=== PATIENT | female | born 1995 | race Caucasian/White ===

== ENCOUNTER 2023-01-21 12:08 | Outpatient (CLI) | payer BC, SELFPAY ==
--- NOTE | 2023-01-21 12:15 | CRLHL7_ITS ---
For Patients: As a result of the Cures Act, medical imaging exams and procedure reports are released immediately into your electronic medical record. You may view this report before your referring provider. If you have questions, please contact your health care provider. INDICATION: First trimester scan, establish dates. COMPARISON: None. TECHNIQUE: Real-time adams-scale imaging of the pelvis was performed. FINDINGS: Sonographic imaging demonstrates a single living intrauterine gestation. The embryo demonstrates a regular cardiac rate measuring 183 beats per minute. The embryo`s crown-rump length measurement of 2.3 cm corresponds to a gestational age of 9 weeks 0 days with a sonographic due date of 08/26/2023. There is a normal-appearing yolk sac. There are no gross abnormalities noted within the embryo at this early state of development. The gestational sac has a normal appearance. There is no evidence of a perigestational hemorrhage. The amount of fluid within the sac appears appropriate for gestational age. The cervix is closed. The myometrium appears normal. The ovaries are of normal size. Corpus luteal cyst right ovary measuring 2.1 cm. There are no suspicious fluid collections noted in the cul-de-sac. IMPRESSION: Normal first trimester OB ultrasound exam. Gestational age calculated at 9 weeks 0 days with a sonographic due date of 08/26/2023. Dictated by Ayush Edwards MD @ 01/21/2023 12:56:10 PM (Electronically Signed)
== END 2023-01-21 12:09 | disposition home or self-care (01) ==
LOC: US 12:08
PROVIDERS: Visit Provider Advanced Practice Midwife
DX: Z34.91 Encounter for supervision of normal pregnancy, unspecified, first trimester (principal); Z3A.09 9 weeks gestation of pregnancy
CPT/HCPCS: 76817; 86703; 86803; 86850; 86900; 86901; 87340

== ENCOUNTER 2023-01-21 13:07 | Outpatient (CLI) | payer BC, SELFPAY | END 2023-01-21 13:08 | disposition home or self-care (01) | PROVIDERS: Visit Provider Advanced Practice Midwife | DX: Z34.91 Encounter for supervision of normal pregnancy, unspecified, first trimester (principal); Z3A.09 9 weeks gestation of pregnancy | CPT/HCPCS: 86592; 86703; 86762; 86787; 86803; 86850; 86900; 86901; 87086; 87340; 87491; 87591 ==

== ENCOUNTER 2023-02-10 10:14 | Outpatient (CLI) | payer BC, SELFPAY | END 2023-02-10 10:15 | disposition home or self-care (01) | LOC: NFLDREF 02-11 02:54 | PROVIDERS: Visit Provider Advanced Practice Midwife | DX: Z34.91 Encounter for supervision of normal pregnancy, unspecified, first trimester (principal); Z13.79 Encounter for other screening for genetic and chromosomal anomalies | CPT/HCPCS: 0353U ==

== ENCOUNTER 2023-06-03 09:26 | Outpatient (CLI) | payer BC, SELFPAY | END 2023-06-03 09:27 | disposition home or self-care (01) | LOC: NFLDREF 06-05 05:46 | PROVIDERS: Visit Provider Advanced Practice Midwife | DX: Z34.93 Encounter for supervision of normal pregnancy, unspecified, third trimester (principal); Z3A.30 30 weeks gestation of pregnancy | CPT/HCPCS: 86592 ==

== ENCOUNTER 2023-07-29 09:30 | Outpatient (CLI) | payer BC, SELFPAY ==
[2023-07-30 13:26] LABS: Strep B DNA Probe POSITIVE (Negative)
[2023-07-30 13:27] LABS: Strep B Pen/Amox Allergy No
== END 2023-07-29 09:31 | disposition home or self-care (01) ==
PROVIDERS: Visit Provider Advanced Practice Midwife
DX: Z34.93 Encounter for supervision of normal pregnancy, unspecified, third trimester (principal); Z3A.36 36 weeks gestation of pregnancy
CPT/HCPCS: 82565; 82570; 84156; 84450; 84460; 84520; 84550; 87081; 87653

== ENCOUNTER 2023-08-27 06:56 | Inpatient (IN) | payer BC, SELFPAY ==
[2023-08-27 07:24] VITALS: BMI 31.3
[2023-08-27 07:28] VITALS: BP 124/72; PULSE 77; PULSE 78; O2SAT 98
[2023-08-27] MEDS: miSOPROStoL 25 MCG/0.25 TABLET VAGINAL (08:10)
--- NOTE | 2023-08-27 08:35 | P.LDBA_ITS ---
Subjective History of Present Illness Date Seen: 08/27/23 Narrative: Patient is being admitted to Labor and Delivery for induction of labor for EFW on 10% and measuring small for dates at term. She is a 27 year old at 40.4 weeks gestation. Her full history and physical was done by MYA Roque on 08/06/2023. Please see this for details. Specific Issues/Plans Partner: Mehul Patient is a twin. Former L & D RN. H&P done by MYA Roque on 08/06/2023 1. Small for dates at term Growth and fluid check ordered 08/26 COVID: vaccinated and boosted x1 Flu: declines Tdap: 06/17/2023 Needs pap OB - Problem Based A/P Additional Plan (1) growth restriction: Status: Acute (2) Fwvwv-olg-xbuob fetus, third trimester: Status: Acute Plan Assessment:??G 1 P0 at 40.4 weeks gestation?? GBS positive?? Labor type: Induced, Early labor? Category 1 FHR pattern.? complicated by: Small for dates at term Growth US 08/26 EFW 10% Plan:?? * ?Admit to L & D? * IV access: SL per policy * Monitoring per policy: continuous ? * Candidate for analgesia of choice.? Planning to see how labor goes before deciding on pain management * Vaginal Cytotec every 4 hours for cervical ripening. * GBS prophylaxis will be initiated for GBS positive status when more active labor begins. Will treat with antibiotics per protocol. * Patient encouraged to reposition and ambulate to promote physiologic labor and . * Anticipate ? Delivery/Labor/Induction Plan Plan: induction Induction method: per misoprostol protocol OB Exam Physical Exam Vital signs: Pulse BP Pulse Ox 77 124/72 98 08/27/23 07:28 08/27/23 07:28 08/27/23 07:28 Narrative: Vitals Reviewed Constitutional:? Alert and oriented x3 HEENT:? Normocephalic, atraumatic Neck:? Supple Lungs:? Clear to auscultation bilaterally Heart:? Regular rate and rhythm, no murmur, rub or gallop Abdomen:? Soft, nontender, and gravid. Vertex by Gregg's, confirmed with cervical exam. Extremities:? No edema or erythema Cervix: 1 cm/30%/-2 station/vertex NST: 150 bpm/moderate variability/+ accelerations/- decelerations/4-5 mins contractions Detailed Labor and Delivery Exam Patient Gravid: Yes
[2023-08-27 12:14] VITALS: BP 132/68; PULSE 77; RESP 16; TEMP 36.8
[2023-08-27 12:20] LABS: Basophils Absolute Auto 0.02 K/uL (0.00-0.30); Basophils Percent Auto 0.2 % (0.0-3.0); Eosinophils Absolute Auto 0.06 K/uL (0.00-0.50); Eosinophils Percent Auto 0.6 % (0.0-7.0); Hemoglobin* 11.7 gm/dL (12.0-16.0); Immature Granulocytes Abs Auto 0.03 K/uL (0.00-0.30); Immature Granulocytes Pct Auto 0.3 %; Lymphocytes Absolute Auto 2.12 K/uL (0.90-2.90); Mean Corpuscular HGB Conc 33 gm/dL (32-36); Mean Corpuscular Hemoglobin 27 pg (26-34); Mean Corpuscular Volume 82 fL (80-100); Monocytes Percent Auto 6.6 % (0.0-11.0); Neutrophils Percent Auto 72.3 % (42.0-72.0); Platelet Count* 201 K/uL (140-440); RDW Coefficient of Variation % 13.3 % (11.5-15.5); Red Blood Count 4.38 m/uL (4.00-5.20); White Blood Count* 10.61 K/uL (4.50-11.00)
[2023-08-27 12:22] LABS: Slide Review Reflex No
--- NOTE | 2023-08-27 13:38 | PM.OBPNL ---
Subjective Date Seen: 08/27/23 Narrative: Hermelinda is coping well with labor pain/contractions. ?Her is with her for support. ?She is lara often but not feeling much more than tightening. We discussed options moving forward for induction. Given her frequent contractions we discussed an IV fluid bolus, Cervidil instead of Cytotec, or a Cook balloon. The patient would prefer to not have a Cook. She is talking over her options with her and will let us know what she decides. Objective Exam: VSS, afebrile General Appearance:? Calm, cooperative. ?No acute distress. ? Psychiatric Exam: Alert and oriented, appropriate affect Abdomen: Gravid Ctx: ?Q 1-3 min apart. ?Mild to?Moderate ? FHTs: ?Baseline: 145. ? ? Variability: moderate. ?Accels: +. ? ?Decels: ?absent. SVE: deferred Membranes: Intact ? Vital Signs: Last Vital Signs Pulse 77 08/27/23 12:14 BP 132/68 08/27/23 12:14 Pulse Ox 98 08/27/23 07:28 Plan Plan: Assessment:?? at 40.4 gestation?? GBS positive Patient is coping well with challenges of labor.?? Labor type: Induced, Early labor? complicated by: Small for dates at term Growth US 08/26 EFW 10% Labor complicated by: frequent contractions without progression to labor? Plan:?? Per pt preference Cervidil vs Cook placement. IV fluid bolus Continue with routine intrapartum cares as ordered.?? Patient encouraged to move and change positions to promote physiologic labor and .?? Nonpharmacologic comfort measures per patient preference. Candidate for analgesia of choice if desired. Anticipate progress to NVD. ?
[2023-08-27] MEDS: LACTATED RINGERS 1000 ML 1,000 ML IV (13:43)
[2023-08-27] MEDS: DINOPROSTONE 10 MG VAGINAL INSERT VAGINAL (14:51)
[2023-08-27 16:12] VITALS: BP 133/73; PULSE 72; RESP 16; TEMP 36.6
[2023-08-27 20:03] VITALS: BP 114/58; PULSE 61; TEMP 36.8
[2023-08-28] VITALS (12 sets, daily range): BP systolic 107–132; BP diastolic 52–78; PULSE 60–93; TEMP 36.4–37.2
--- NOTE | 2023-08-28 03:13 | PM.OBPNL ---
Subjective Date Seen: 08/28/23 Narrative: ?Hermelinda is coping well with labor pain/contractions. ?Mehul is with her for support. She has been able to sleep, she said she was woken by an occasional contraction. ?Cervidil was removed after 12 hours since placement. Cervix is now 1cm, soft, midposition, -2 not ballotable. Discussed plan of care moving forward with Hermelinda. Reviewed options of Cook, additional Cytotec or starting Pitocin. Risks and benefits were reviewed. Hermelinda would like to move forward with IV Pitocin at this time. Objective Exam: VSS, afebrile General Appearance:? Calm, cooperative. ?No acute distress. ? Psychiatric Exam: Alert and oriented, appropriate affect Abdomen: Gravid Ctx: ?Q 1-4 min apart. ?Mild ? ?she does not feel all that are tracing with Kitty in use FHTs: ?Baseline: 140. ? ? Variability: moderate. ?Accels: +. ? ?Decels: ?-. SVE: 1/50%/-2 Membranes: Intact ? Vital Signs: Last Vital Signs Temp 98.3 F 08/28/23 00:01 Pulse 67 08/28/23 00:01 Resp 16 08/27/23 16:12 BP 110/59 L 08/28/23 00:01 Pulse Ox 98 08/27/23 07:28 Assessment Assessment: induction ongoing Status: Category l Plan Plan: Assessment:?? at 40.5 gestation?? GBS positive Labor type: Induced, Early labor? complicated by: Small for dates at term Growth US 08/26 EFW 10% Plan:?? Start IV Pitocin per protocol GBS positive, start antibiotics when regular painful contractions begin or progression in dilation. Continue with routine intrapartum cares as ordered.?? Patient encouraged to move and change positions to promote physiologic labor and .?? Nonpharmacologic comfort measures per patient preference. Candidate for analgesia of choice if desired. Anticipate progress to NVD. ? ?
[2023-08-28] MEDS: OXYTOCIN 30 unit/500 ML in NS 30 UNIT/500 ML BAG IVPB (03:29)
--- NOTE | 2023-08-28 09:26 | PM.OBPNL ---
Subjective Date Seen: 08/28/23 Narrative: Hermelinda was on pitocin for a few hours and got up to 6ml/hr. Around 0800 baby dd have a couple of variables to the 70's followed by some late decelerations. Position changes and fluid bolus was given to try to resolve this. The pitocin was turned of around 0830 and the lates resolved shortly after. She was feeling some of the contractions when the pitocin was on but mildly but they have decreased in intensity since it was turned off. Variability has continued to be moderate throughout. After of a discussion of options going forward including restarting pitocin and cook placement with and without pitocin reviewing advantages and disadvantages of both. She would like to try the pitocin again. It was decided to give her a 2 hour break before restarting the pitocin. She will also try position changes and circuit. She might consider the cook if baby is still not tolerating pitocin. Offered a SVE but she declines at this time. Objective Vital Signs: Last Vital Signs Temp 98 F 08/28/23 07:20 Pulse 93 08/28/23 07:21 Resp 16 08/27/23 16:12 BP 107/55 L 08/28/23 07:21 Pulse Ox 98 08/27/23 07:28 Contractions Monitor mode: External Contraction Frequency: 1.5-4 with irritability inbetween Contraction pattern: Irregular Contraction intensity: Mild Pitocin Rate (mU/min): 0 Assessment Assessment: induction ongoing Status: Category l Heart Rate Baseline: 140 [employer] Deposit Clerk Variability: Moderate (6-25) Monitor Accelerations: Present Monitor Decelerations: Variable (followed by lates. no resolved. ) Plan Plan: Restart Pitocin around 1030. Induction ongoing. Continuous monitoring.
[2023-08-28] MEDS: LACTATED RINGERS 1000 ML 1,000 ML 125 ML IV ×2 (10:42→13:18)
[2023-08-28] MEDS: LACTATED RINGERS 1000 ML 1,000 ML IV (19:12)
--- NOTE | 2023-08-28 19:19 | PM.OBPNL ---
Subjective Date Seen: 08/28/23 Narrative: Janine Gabriel is a 27 yo at 40 5/7 weeks gestation here for IOL for IUGR at 10%ile. She was admitted yesterday morning and has received 1 dose of cytotec, cervidil, and pitocin. Plan to assess for further labor management. She reports mild cramping and discomfort but overall coping well with labor. She is supported by her . Objective Exam: Objective: Constitutional: Alert and oriented x3, mild distress, coping well Vital signs stable, see nurse documentation Abdomen: gravid, contractions palpate mild with contractions and soft between Cervix: 1-2 cm/60%/-1 station/vertex NST: 150 bpm/moderate variability/15x51 accelerations/occasional decelerations/irregular contractions Vital Signs: Last Vital Signs Temp 98.3 F 08/28/23 16:14 Pulse 70 08/28/23 16:14 Resp 16 08/27/23 16:12 BP 107/59 L 08/28/23 16:14 Pulse Ox 98 08/27/23 07:28 Contractions Monitor mode: External Contraction pattern: Irregular Contraction intensity: Mild Pitocin Rate (mU/min): 0 Assessment Assessment: early labor Station: -1 Status: Category l Heart Rate Baseline: 140 Monitor Accelerations: Present Monitor Decelerations: Variable (followed by lates. no resolved. ) Labor Progress: Attempted cook catheter but unable to get uterine balloon to stay in cervix. Attempted AROM, unsuccessfully. Plan Plan: Assessment:?? at 40.5 gestation?? GBS positive Labor type: Induced, Early labor? complicated by: Small for dates at term Growth US 08/26 EFW 10% Plan:?? Slow labor progression after multiple agents. Attempted cook x 2 and AROM, unsuccessful. Plan to start pitocin and restart cytotec. GBS positive, start antibiotics when regular painful contractions begin or progression in dilation or with AROM. Continue with routine intrapartum cares as ordered.?? Patient encouraged to move and change positions to promote physiologic labor and .?? Nonpharmacologic comfort measures per patient preference. Candidate for analgesia of choice if desired. Anticipate progress to NVD. ?
[2023-08-28] MEDS: OXYTOCIN 30 unit/500 ML in NS 30 UNIT/500 ML BAG 8 UNIT IVPB (21:33)
--- NOTE | 2023-08-28 23:07 | P.OBPN_ITS ---
Subjective Date Seen: 08/28/23 Narrative: Janine is a G1 at 40 5/7 weeks gestation that has made minimal cervical change after >36 hours of IOL. Patient is on 8 of pitocin. Tolerating labor well but not really feeling contractions. AROM and Cook catheter were previously attempted without success. It has been 4+ hours since previous exam. She had declined exam in the last few hours but is open to one now due to recent variable decelerations. Objective Exam: Objective: Constitutional: Alert and oriented x3, mild distress, coping well Vital signs stable, see nurse documentation Abdomen: gravid, contractions palpate mild with contractions and soft between Cervix: 1-2 cm/60%/-1 station/vertex, difficult exam with head easily palpated with anterior swipe but difficult to follow cervix to back, very tilted forward. AROM attempted, scant amount of clear fluid noted with exam. NST: 140 bpm/moderate with episodes of minimal variability/15x15 accelerations/variable and indeterminate decelerations/contractions regular every 1-3 minutes Vital Signs: Last Vital Signs Temp 99.0 F 08/28/23 20:00 Pulse 75 08/28/23 22:16 Resp 16 08/27/23 16:12 BP 115/74 08/28/23 22:16 Pulse Ox 98 08/27/23 07:28 Contractions Monitor mode: External Contraction pattern: Irregular Contraction intensity: Mild Pitocin Rate (mU/min): 8 Assessment Assessment: induction ongoing and early labor Station: -1 Status: Category ll Heart Rate Baseline: 140 Plan Plan: at 40.5 gestation?? GBS positive Labor type: Induced, Early labor? Category II tracing complicated by: IUGR. Growth US 08/26 EFW 10% Plan:?? Reviewed unchanged cervical exam after 5 hours with restarted pitocin, on 8mu and status with decelerations intermittently, overall reassuring. Discussed probability of labor progression. Discussed the remote status of her labor from delivery. With exam, cervix is midline but tilts very anterior and is very difficult examine and keep it in a position to do AROM. I presented options of continuing labor with pitocin, shutting it off and retrying Cervidil or cook catheter, or proceeding with section. She was given time to discuss further with her . After some time, she has elected to proceed with section. Dr. Moser consulted and notified; agrees to proceed. Care transferred to OB for delivery, CNM will assume care. See her note for consent and proc edure documentation.
[2023-08-29] VITALS (32 sets, daily range): BP systolic 101–127; BP diastolic 55–81; PULSE 54–104; RESP 14–16; TEMP 36.3–37; O2SAT 97–99
--- NOTE | 2023-08-29 00:16 | P.OBCN_ITS ---
OB - CN: HPI Date of Consult Time Seen by Provider: 00:16 Date Seen: 08/29/23 Patient: [facility] Patient Consult date: 08/29/23 Requesting Physician: Kacie Hubbard CNM Primary Care Provider: Not a Local Provider Consult Narrative Reason for consult: nonreassuring FHTs and other (Failed IOL) Narrative: The patient is a 27 year old G 1 P 0 at 40 6/7 weeks gestation that was admitted to the Center on 08/27/23 for failed induction of labor, intolerance of labor. History History 1 Elective abortions Para 0 Spontaneous abortions Hx # Term Pregnancies Ectopic pregnancies Hx # Pregnancies Multiple births Number of Living Children 0 Labs GBS status: positive OB Labs: Lab Assessment Start: 08/27/23 07:16 Freq: ONCE Status: Complete Protocol: PC.OBGBS Activity Type Activity Date Activity User E-sign Co-sign Detail Recorded Client Recorded Date Recorded By Document 08/27/23 07:21 ABP [id number] 08/27/23 07:22 ABP 08/27/23 07:21 Lab Assessment GBS Status positive Is Patient Allergic to Penicillin? No Treatment Required OK Are Labs Available Yes Maternal Blood Type A Maternal RH Factor Positive Evaluate Maternal Rubella Immune Status Immune Hepatitis B Surface Antigen Negative Maternal HIV Status Negative Maternal Syphillis (RPR) Status Negative [facility] Medical History No significant past medical history Surgical History [place] teeth extracted ?K08.409 - Partial loss of teeth, unspecified cause, unspecified class (ICD- 10) History of placement of ear tubes ?Z96.22 - Myringotomy tube(s) status (ICD-10) Family History Father High cholesterol Mother No significant past medical history Grandfather Stroke Pancreatic cancer Grandfather Cardiac arrhythmia Social History What is your current living situation?: I presently have a place to live Problems where you live: no known problems In the past 12 months, utilities in danger of being shut off: no In past 12 months, lack of transportation kept you from medical appts, meetings, work, or getting things needed for daily living: no In the past 12 mos, have been you worried that your food would run out before you had money to buy more?: never true In the past 12 mos, the food you bought just didn't last and you didn't have money to buy more?: never true Smoking Status: Never smoker How often does anyone, including family, friends and others, physically hurt you : never How often does anyone, including family, friends and others, insult or talk down to you: never How often does anyone, including family, friends and others, threaten you with harm: never How often does anyone, including family, friends and others, scream or curse at you: never Little interest or pleasure in doing things: not at all Feeling down, depressed, or hopeless: not at all Meds Home Medications and Allergies Home Medications Medication Instructions Recorded Confirmed Type prenat.vits,bharathi,ajd-dbva-zvdkb 1 tab PO QDAY 01/21/23 08/27/23 History Allergies Allergy/AdvReac Type Severity Reaction Status Date / Time No Known Drug Allergies Allergy Verified 08/26/23 09:19 OB - H&P: Exam Physical Exam: Vital signs: Temp Pulse Resp BP Pulse Ox 99.0 F 75 16 115/74 98 08/28/23 20:00 08/28/23 22:16 08/27/23 16:12 08/28/23 22:16 08/27/23 07:28 Narrative: Cervix: 2cm/anterior/50% NST: 130bpm/moderate variability/positive accelerations/negative decelerations after d/c of oxytocin OB - CN: A/P Assessment and Plan (1) growth restriction: Status: Acute (2) Cseak-xwu-yzrap fetus, third trimester: Status: Acute (3) Failed induction of labor: Status: Acute Plan 27 y/o G1 at 40 6/7 weeks admitted for IOL due to post term dates. Patient has been admitted now for 2 days, she has received Cytotec, Cervidil and Oxytocin. CNM attempted placement of cook catheter but cervix is really anterior and very difficult to grasp. Cervix has changed from 1-2cm. Cervix very hard to reach and AROM was just attempted. Oxytocin has had to be turned off on multiple occasions throughout the day due to repetitive late decelerations. CNM discussed further options with patient including proceeding with delivery at this time and patient has agreed. I explained to Ally how procedure is performed, risks of surgery such as bleeding and needing an emergency blood transfusion, risks associated with blood transfusions to such as infection or allergic reaction. Risk of infection associated to surgery, damage to nearby structures, blood clots. Discussed interventions to decrease these risks, such as prophylactic ant ibiotics, compression stockings etc... Reviewed family centered section as well as post op care. Will proceed with delivery.
--- NOTE | 2023-08-29 01:23 | PM.OBPRCCS ---
Procedure Time Seen by Provider: Date of procedure: 08/29/23 Pre-op diagnosis: Failed induction of labor, intolerane of labor Post-op diagnosis: same Procedure Done: Global [facility] bill your pro fee for this procedure?: Yes Blood Loss Measurement Type: QBL (279) Bakri Used: No IV fluids (mL): 1,200 Urine Output (mL): 100 Surgeon: Rosanne Hauser MD Customer Support Agent: None Anesthesia type: Spinal Findings: FINDINGS: Live-born male , LOT vertex presentation, one loose nuchal cord. Apgars 8 and 9 at 1 and 5 minutes respectively. weight 7 lb 8 oz. Procedure Name: Primary Low Transverse Section Procedure Description: PROCEDURE: After obtaining informed consent, the patient was taken to the operating room where spinal anesthesia was obtained and found to be adequate. She was prepared and draped in the normal sterile fashion in the dorsal supine position with a leftward tilt. A Pfannenstiel skin incision was made with a scalpel about 2 cm above symphysis pubic bone, 8-10 cm in length. This incision was carried down to the underlying layer of fascia with the scalpel. The fascia was incised in the midline and the incision extended laterally. The rectus muscles were then in the midline. The Pedro O retractor was then placed into the incision. The lower uterine segment was then incised in a transverse fashion with the scalpel. Upon entry into the uterus, clear amniotic fluid was noted. The uterine incision was extended cephalo caudally with blunt finger fractionation. vertex was brought up to incision and with fundal pressure the head was delivered atraumatically, nuchal cord identified and reduced easily, followed by delivery of the body.. The cord was doubly clamped and cut after 30 seconds of delayed cord clamping, and the infant was handed off the field to [facility] for evaluation. The placenta was delivered spontaneously with umbilical cord traction and fundal massage. The uterus was cleared of all clots and debris. The uterine incision was reapproximated in a running locking fashion with a 0 Vicryl suture. A 2nd layer of the same suture was used to imbricate in horizontal fashion. The gutters were inspected and cleared of blood clot. All instruments and retractors were removed. Peritoneum approximated with Vicryl 3-0 in a continuous fashion. The subfascial tissues were carefully inspected and hemostasis assured. The fascia was reapproximated in a running fashion with a looped 0 Vicryl suture. The subcutaneous tissues were inspected and hemostasis was assured. The subcutaneous fat layer was reapproximated with interrupted sutures of 3-0 Vicryl. The skin was closed in a subcuticular fashion with 4-0 Monocryl. LiquiBand and dressing were applied. The patient tolerated the procedure well. Sponge, lap, needle, and instrument counts were reported as correct x2. The patient was taken to the recovery room, awake, and in stable condition. She did receive 2 grams of IV Ancef and 500g of Azithromycin preoperatively. Debrief completed at the end of procedure, stating procedure performed, QBL, no complications and requesting that placenta be sent to pathology due to IUGR, unscheduled delivery. Complications: None Condition: stable Disposition: floor total score - 1 minute: 8 total score - 5 minute: 9 OB Delivery Proc Additional Procedures Tubal Ligation at the time of : No Other: No
--- NOTE | 2023-08-29 01:50 | W.PM.NB ---
Nerve Block Nerve Block Time Seen by Provider: 01:30 Date Seen: 08/29/23 Type of block requested by surgeon for post-operative analgesia: TAP Side: bilateral Time out performed: Yes Verification of patient name: Yes Verification of date of : Yes Site marking: not applicable Name of person performing procedure: Darío Anthony Continuous monitoring Was continuous monitoring of O2 sat, B/P, quality assurance monitor body, recorded every 15 minutes?: Yes Procedure Checklist: sterile prep, needles and gloves Ultrasound guided. Images saved: Yes Medications given in 5ml increments after negative aspiration: Marcaine %: 0.25 mL: 30 Needle gauge: 20 and Exparel mL: 10 Needle gauge: 20 Patient tolerated procedure well: Yes
--- NOTE | 2023-08-29 01:52 | W.ANESCHARGE ---
Anesthesia Charges Start Date/Time Anesthesia Start Date: 08/29/23 Anesthesia Start Time: 00:19 Stop Date/Time Anesthesia Stop Date: 08/29/23 Anesthesia Stop Time: 01:39 Summary Emergency: [employer]
[2023-08-29] MEDS: KETOROLAC 30 MG/ML inj IVP ×3 (07:37→19:23)
[2023-08-29] MEDS: DOCUSATE SODIUM 100 MG CAPSULE PO (07:45)
[2023-08-29] MEDS: ACETAMINOPHEN 500 MG TABLET 1000 MG PO ×3 (11:01→23:30)
[2023-08-30 00:49] VITALS: RESP 16; O2SAT 97
[2023-08-30 01:13] VITALS: BP 106/70; PULSE 88; RESP 16; TEMP 36.5; O2SAT 97
[2023-08-30] MEDS: KETOROLAC 30 MG/ML inj IVP ×2 (01:30→07:39)
[2023-08-30] MEDS: SIMETHICONE 80 MG TAB.CHEW PO (02:32)
[2023-08-30] MEDS: ACETAMINOPHEN 500 MG TABLET 1000 MG PO ×3 (05:09→18:04)
[2023-08-30 05:14] VITALS: BP 102/68; PULSE 69; RESP 16; TEMP 36.6
[2023-08-30 06:55] LABS: Hemoglobin* 9.4 gm/dL (12.0-16.0)
[2023-08-30] MEDS: DOCUSATE SODIUM 100 MG CAPSULE PO (07:41)
--- NOTE | 2023-08-30 07:53 | PM.OBPNVD1 ---
OB - PN:Subj Subjective Date Seen: 08/30/23 Patient comments OB post-: no complaints, pain well controlled, tolerating diet and flatus present [place] status: and doing well Narrative: Janine is a 27 y.o. who was admitted to L & D for induction of labor for IUGR 10th percentile. ?She had an uncomplicated .?The patient feels well. ?The pain is well controlled with current medications. ?She has no new complaints. ?She is breast feeding and reports things are going well.? the patient has done well.? Vitals have been stable.? She has remained afebrile.? Has a good appetite, is tolerating a general diet. ?She is voiding without difficulty.? She is passing gas and has not had a bowel movement.? She is ambulating and denies any dizziness.? Has small amount of rubra lochia. OB - PN: Obj Exam Physical Exam: Vital signs: Temp Pulse Resp BP Pulse Ox O2 Del Method 97.9 F 69 16 102/68 97 Room Air 08/30/23 05:14 08/30/23 05:14 08/30/23 05:14 08/30/23 05:14 08/30/23 01:13 08/30/23 05:14 Narrative: GENERAL APPEARANCE:? normal affect, alert, no distress MOOD:? appropriate CHEST:? clear to auscultation HEART:? regular rate and rhythm ABDOMEN:? soft, non-tender the uterine fundus is at Umbilicus, Midline and is appropriate for the stage of recovery. EXTREMITIES:? normal and no edema INCISION: Healing well, no surrounding erythema, abnormal induration or discharge Urinary Catheter Management: Urethral: Cath placed during this visit: yes, but has since been removed by the nurse Reason for continuing: surgical procedure Insertion date: 08/29/23 Insertion time: 00:35 Removal date: 08/29/23 Removal time: 09:00 OB - PN: Obj Data Labs Labs: Laboratory Results - last 24 hr 08/30/23 06:35 Hgb 9.4 L OB - PN: A/P Delivery Assessment and Plan (1) care and examination immediately after delivery: Status: Acute (2) Lactating mother: Status: Acute (3) Delivery by section of full-term infant: Status: Acute (4) Anemia due to acute blood loss: Status: Acute (5) Failed induction of labor, delivered: Status: Acute Plan day: 1 Plan: routine care Comments: Routine post-op care. Anemia. Hgb 9.4. Every other day iron started. Lactating mother. Anticipate discharge tomorrow.
[2023-08-30 09:40] VITALS: BP 112/73; PULSE 91; RESP 16; TEMP 36.6; O2SAT 99
[2023-08-30] MEDS: FERROUS SULFATE 325 MG TABLET PO (09:41)
[2023-08-30] MEDS: OXYCODONE 5 MG TABLET PO ×2 (11:13→18:04)
[2023-08-30] MEDS: IBUPROFEN 600 MG TABLET PO ×2 (14:15→21:27)
[2023-08-30 16:20] VITALS: BP 109/72; PULSE 95; RESP 16; TEMP 36.6; O2SAT 97
[2023-08-30 21:25] VITALS: BP 108/71; RESP 16; TEMP 36.8; O2SAT 98
[2023-08-31] MEDS: ACETAMINOPHEN 500 MG TABLET 1000 MG PO ×2 (00:14→06:26)
[2023-08-31] MEDS: OXYCODONE 5 MG TABLET PO ×2 (00:14→06:27)
[2023-08-31 03:26] VITALS: BP 112/74; PULSE 79; RESP 16; TEMP 36.9; O2SAT 97
[2023-08-31] MEDS: IBUPROFEN 600 MG TABLET PO ×2 (03:28→09:09)
--- NOTE | 2023-08-31 08:47 | P.DS_ITS ---
DS: Providers Provider Time Seen by Provider: 08:47 Date Seen: 08/31/23 Date of admission: 08/27/23 06:56 Primary care physician: Not a Local Provider Admitting Clinician: Kacie Hubbard CNM Consults: 08/29/23 00:01 Consult to Physician [CONS] Routine Comment: Consulting Provider: Lupe Hauser Has provider been notified: Yes Attending Physician on discharge: Kacie Hubbard CNM Date of Discharge: 08/31/23 DS: Diagnosis Discharge Diagnosis (1) Delivery by section of full-term : Status: Acute (2) care and examination immediately after delivery: Status: Acute (3) Lactating mother: Status: Acute (4) Anemia due to acute blood loss: Status: Acute Exam Narrative: Exam Narrative: VSS. ?Afebrile GENERAL APPEARANCE: ?normal affect, alert, no distress MOOD: ?appropriate HEENT: normocephalic, neck supple, full ROM CHEST: ?Symmetrical chest wall movement. ?Normal respiratory effort. ?Clear to auscultation HEART: ?regular rate and rhythm ABDOMEN: ?soft, non-tender. Uterine fundus is firm, 1 below Umbilicus, Midline and is appropriate for the stage of recovery. ?Bowel sounds present. EXTREMITIES: ?normal and no edema SKIN: warm, dry. ? ?Incision clean/dry/well approximated. ?No signs of infection noted.Bruising noted, extending from incision, more on right side. Const: Vital Signs, click to edit/add: Vital Signs - 24 hr 08/30/23 09:40 08/30/23 16:20 08/30/23 21:25 Temperature 97.9 F 97.8 F 98.2 F Pulse Rate [Blood Pressure Cuff] 91 95 Respiratory Rate 16 16 16 Blood Pressure [Le ft Arm] 112/73 109/72 108/71 Pulse Oximetry 99 97 98 Oxygen Delivery Me thod Room Air Room Air Room Air 08/31/23 03:26 Temperature 98.4 F Pulse Rate [Blood Pressure Cuff] 79 Respiratory Rate 16 Blood Pressure [Le ft Arm] 112/74 Pulse Oximetry 97 Oxygen Delivery Me thod Room Air OB - DS: Summary Hospital Course Hospital Course: Hermelinda is a 27 y.o. G 1 P 1 who was admitted to L & D for IOL for IUGR. ?She had an uncomplicated . ? The patient feels well. ?The pain is well controlled with current medications. ?She has no new complaints. ?She is breast feeding and reports things are going well.? the patient has done well.? Vitals have been stable.? She has remained afebrile.? Has a good appetite, is tolerating a general diet. ?She is voiding without difficulty.? She is passing gas and has not had a bowel movement.? She is ambulating and denies any dizziness.? Has Small amount of rubra lochia. She is planning condoms for prevention. Problems: none plan: Discharge home with baby. Follow up in 2 weeks and 6 weeks. , may follow up with if needed Acute anemia, continue iron supplementation for 6 weeks BPs creeping up in clinic but remained WNL. have remained WNL, not mildly elevated -Is aware of signs of preeclampsia an when to be seen. Peripartum Data Infant delivery method: Primary C/S; Labored Procedures: Procedures Operation Date: 08/29/23 00:45 Actual Procedure Side Surgeon p Section Lupe Hauser MD complications: none Gender: Male Infant Discharge Plan: Home Status at Discharge Functional status at discharge: independent ambulation Overall status at discharge: patient is progressing back to baseline Time Spent with Patient Time attestation: Total time spent providing and/or coordinating discharge services: Time spent: Less than 30 minutes Discharge Plan Discharge Disposition: Home, Self-Care Date of Admission: 08/27/23 06:56 Attending Provider on Discharge: Blessing Byrnes Consulting Providers: Lupe Hauser Primary Care Provider: Provider,Not a Local Condition: Stable Anticipated Discharge Date/Time: 08/31/23 11:00 Discharge Medications: New docusate sodium 100 mg Capsule 100 mg PO BID PRNQty: 100 0RF Rx Instructions: Take 1 cap 1-2 times a day as needed for constipation ferrous sulfate 325 mg (65 mg iron) Tablet 325 mg PO Q OTHER DAY 42 Days Qty: 21 0RF ibuprofen 600 mg Tablet 600 mg PO Q6H PRN (Reason: Pain) Qty: 60 0RF oxycodone 5 mg Tablet 5 - 10 mg PO Q4H PRN (Reason: Pain) Qty: 20 0RF Continued prenat.vits,bharathi,[id number] Tablet 1 tab PO QDAY Discharge Orders: Discharge Order (Routine); Ordered 08/31/23 Ordered By: Blessing Byrnes Patient Education: OB Over the Counter Medication Information, OB /Breast Feeding Additional Instructions: Follow up in 2 weeks and 6 weeks Activity Level: Activity as Tolerated Discharge Diet: Regular Follow Up Appointments: Provider,Not a Local [Primary Care Provider] - Forms: Incoming Mediaeal Info Instructions
[2023-08-31 09:00] VITALS: BP 116/58; PULSE 86; RESP 16; TEMP 36.8; O2SAT 97
[2023-08-31] MEDS: DOCUSATE SODIUM 100 MG CAPSULE PO ×2 (09:09)
== END 2023-08-31 11:00 | disposition home or self-care (01) | DRG 540 ==
PROVIDERS: Obstetrics & Gynecology; Admitting Provider Advanced Practice Midwife; Visit Provider Advanced Practice Midwife
PROC: 10D00Z1 Extraction of Products of Conception, Low, Open Approach (ICD-10-PCS; CPT 59514; principal; 2023-08-29 00:30)
DX: O36.5930 Maternal care for other known or suspected poor fetal growth, third trimester, not applicable or unspecified (principal); O61.0 Failed medical induction of labor; O76 Abnormality in fetal heart rate and rhythm complicating labor and delivery; O99.824 Streptococcus B carrier state complicating childbirth; O90.81 Anemia of the puerperium; D62 Acute posthemorrhagic anemia; G89.18 Other acute postprocedural pain; Z3A.40 40 weeks gestation of pregnancy; Z37.0 Single live birth
CPT/HCPCS: 01961; 36415; 59200; 64488; 76816; 76819; 76820; 85018; 85025; 86850; 86900; 86901; 88307; 99140; A9270; C9290; J0665; J1885; J2210; J2274; J2405; J2590; J7120

== ENCOUNTER 2024-09-10 12:07 | Outpatient (CLI) | payer OTHER, SELFPAY | END 2024-09-10 12:08 | disposition home or self-care (01) | LOC: NFLDREF 09-12 14:19 | PROVIDERS: Visit Provider Physician Assistant | DX: Z01.419 Encounter for gynecological examination (general) (routine) without abnormal findings (principal); Z13.6 Encounter for screening for cardiovascular disorders; Z13.1 Encounter for screening for diabetes mellitus | CPT/HCPCS: 80061; 82947 ==

== ENCOUNTER 2024-09-22 08:02 | Outpatient (CLI) | payer OTHER, SELFPAY ==
--- NOTE | 2024-09-22 08:15 | CRLHL7_ITS ---
For Patients: As a result of the Cures Act, medical imaging exams and procedure reports are released immediately into your electronic medical record. You may view this report before your referring provider. If you have questions, please contact your health care provider. LEFT BREAST ULTRASOUND, 09/22/2024 CLINICAL HISTORY: 28-year-old female. The patient delivered a baby approximately one year ago. The patient has been breast-feeding over the last year. Intermittent LEFT-sided mastodynia. Prominent superficial vein superolateral LEFT breast at the 1 o???clock position extending medially. Intermittent spontaneously revolving LEFT breast rash. TECHNIQUE: Directed LEFT breast ultrasound with this radiologist present. FINDINGS: The LEFT breast is carefully scanned at the 12 and 1 o???clock position between 1-4 cm from the nipple. The LEFT breast is also carefully scanned at the 6 o???clock position, 4 cm from the nipple. Only normal dense breast tissue is identified. Few mildly prominent lactiferous ducts in the retroareolar space. Mildly prominent superficial vein superolateral margin left breast at the 1 o???clock position which does not demonstrate venous thrombosis. These findings were discussed in detail with the patient. BI-RADS Category 2: Benign Clark Wagner M.D. Diagnostic/Nuclear Medicine Radiologist [email or web address] Transcribed: 9:41 am DW/Dictated by: Clark Wagner MD @ 09/22/2024 9:26:00 AM (Electronically Signed)
== END 2024-09-22 08:03 | disposition home or self-care (01) ==
LOC: US 08:02
PROVIDERS: Visit Provider Physician Assistant
DX: N64.4 Mastodynia (principal); Z39.1 Encounter for care and examination of lactating mother
CPT/HCPCS: 76642

== ENCOUNTER 2024-10-04 10:10 | Outpatient (CLI) | payer OTHER, SELFPAY | END 2024-10-04 10:11 | disposition home or self-care (01) | LOC: NFLDREF 10-06 14:05 | PROVIDERS: Visit Provider Physician Assistant | DX: N64.4 Mastodynia (principal) | CPT/HCPCS: 80053 ==

== ENCOUNTER 2025-09-05 16:09 | Outpatient (CLI) | payer OTHER, SELFPAY | END 2025-09-05 16:10 | disposition home or self-care (01) | LOC: NFLDREF 16:10 | PROVIDERS: Visit Provider Physician Assistant | DX: R00.2 Palpitations (principal) | CPT/HCPCS: 84443 ==

== ENCOUNTER 2025-11-08 14:26 | Outpatient (CLI) | payer OTHER, SELFPAY ==
--- NOTE | 2025-11-08 14:45 | CRLHL7_ITS ---
For Patients: As a result of the Cures Act, medical imaging exams and procedure reports are released immediately into your electronic medical record. You may view this report before your referring provider. If you have questions, please contact your health care provider. OB ULTRASOUND 11/08/2025 INDICATION: Dating and viability. TECHNIQUE: Real time adams scale imaging of the fetus was performed. Transvaginal imaging performed. LMP: 09/09/2025. ROMAN by LMP: 06/16/2026. GA: 8 w, 4 d. Previous US: No. CRL: 2.0 cm. 8 w 4 d. ROMAN: 06/16/2026. FHR: 180 BPM. Gestational sac: 3.7 cm. Appears within normal limits. Yolk sac: 3.5 mm. Appears within normal limits. Right ovary: 3.0 x 1.5 x 2.4 cm. Left ovary: 3.2 x 2.3 x 2.4 cm. CL. IMPRESSION: 1) Single living intrauterine measures 8 weeks 4 days with a sonographic due date 06/16/2026. 2) Small subchorionic hemorrhage measures 2.0 x 0.1 x 2.3 cm. AYUSH VIVAS M.D. Diagnostic Radiologist [email or web address] DW/Dictated by: Ayush Vivas MD @ 11/12/2025 10:37:00 PM (Electronically Signed)
== END 2025-11-08 14:27 | disposition home or self-care (01) ==
LOC: US 14:26
PROVIDERS: Visit Provider Advanced Practice Midwife
DX: O20.9 Hemorrhage in early pregnancy, unspecified (principal); Z3A.08 8 weeks gestation of pregnancy
CPT/HCPCS: 76817

== ENCOUNTER 2025-11-08 15:37 | Outpatient (CLI) | payer OTHER, SELFPAY | END 2025-11-08 15:38 | disposition home or self-care (01) | PROVIDERS: Visit Provider Advanced Practice Midwife | DX: Z34.91 Encounter for supervision of normal pregnancy, unspecified, first trimester (principal) | CPT/HCPCS: 83020; 83021; 85660; 86703; 86704; 86706; 86762; 86780; 86787; 86803; 86850; 87086; 87340 ==